=== PATIENT | female | born 1995 | race Caucasian/White ===

== ENCOUNTER 2016-10-04 04:02 | Emergency (ER) | payer OTHER ==
--- NOTE | ~2016-10-04 | CR72 ---
[facility] A Service of [facility] [place] [facility] RADIOLOGY TEXT RESULTS PATIENT: AZALEA LEON LOCATION: [facility] : [birth year] UNIT #: [id number] AGE: [address]: Paula Martinez MD SEX: F ORDER DR: [id number] [facility] [address] [place], [place] [address] [id number] MR#: [id number] Acc #: [id number] NAME: AZALEA LEON : 1995 SEX: F STUDY DATE/TIME: 10/04/2016 6:13 UNIT: [facility] ROOM: STUDY DESCRIPTION: CR Chest Single View Portable Attending Physician: Paula Martinez M.D. Ordering Physician: Paula Martinez M.D. Primary Care Physician: [facility], MEDICAL IMAGING REPORT This report is preliminary unless electronic signature is present EXAM Portable chest. INDICATION Shortness of air and cough for two days. FINDINGS Portable view of the chest was obtained. Heart size and vascularity are normal. Lungs are clear. The bones are unremarkable. IMPRESSION No active disease. Dictated by... Lonny Goldsmith M.D. THIS IS AN ELECTRONICALLY VERIFIED REPORT Lonny Goldsmith M.D. at 10/04/2016 2:19 PM FEL/gz TD: 10/04/2016 10:26 JOB #: [id number] MEDICAL IMAGING REPORT Page 1 of 1 COPY
[~2016-10-04 04:02] MED LIST: PREDNISONE1 MG PO
== END 2016-10-04 06:45 | disposition home or self-care (01) ==
LOC: CED 04:02
DX: J20.9 Acute bronchitis, unspecified (principal)
CPT/HCPCS: 71010; 84703; 99283